=== PATIENT | male | born 1950 | race Caucasian/White ===

== ENCOUNTER 2021-07-03 16:58 | Observation (INO) ==
[2021-07-03 17:51] LABS: Basophils % 0.3 %; Eosinophils # 0.2 K/mcL (0.0-0.6); Eosinophils % 1.5 %; Hematocrit 42.3 % (37.5-50.1); Hemoglobin 13.8 g/dL (12.9-16.9); Immature Granulocytes % 0.5 % (0-4); Lymphocytes # 1.4 K/mcL (0.6-4.6); Lymphocytes % 11.5 %; Mean Corpuscular HGB Conc 32.6 g/dL (31.6-35.5); Mean Corpuscular Hemoglobin 31.1 pg (28.0-33.3); Mean Corpuscular Volume 95.3 fL (83.0-100.0); Mean Platelet Volume 10.6 fL (9.4-12.4); Monocytes % 8.3 %; Neutrophils # 9.1 K/mcL (1.6-8.9); Platelet Count 272 K/mcL (140-400); Red Blood Count 4.44 M/mcL (4.19-5.50); Segmented Neutrophils % 77.9 %; White Blood Count 11.7 K/mcL (4.3-11.1)
[2021-07-03] MEDS ORDERED: Acetaminophen 325 MG TABLET PO ONE (17:53)
[2021-07-03 17:58] LABS: INR 1.2; Prothrombin Time 13.3 Seconds (9.4-12.1)
[2021-07-03 18:01] LABS: Activated Partial Thrombo Time 47.9 Seconds (26.0-36.0)
[2021-07-03 18:09] LABS: BUN/Creatinine Ratio 16 (6-26); Blood Urea Nitrogen 22 mg/dL (8-23); Calcium 9.3 mg/dL (8.6-10.3); Carbon Dioxide 35 mEq/L (23-29); Chloride 97 mEq/L (98-107); Glucose 154 mg/dL (70-105); Osmolality,Calculated 294 (280-300); Potassium 3.4 mEq/L (3.5-5.1); Sodium 139 mEq/L (136-145); eGFR For African Americans > 60 (> 60); eGFR For Non-African Americans 51 (> 60)
[2021-07-03] MEDS ORDERED: Acetaminophen 325 MG TABLET PO PRN (20:31)
[2021-07-03] MEDS ORDERED: *HR* HYDROcodone/Acet 5/325 mg TABLET PO PRN (20:31)
[2021-07-03] MEDS ORDERED: Melatonin 3 MG TABLET PO PRN (20:31)
[2021-07-03] MEDS ORDERED: Ondansetron 4 MG/2 ML VIAL IVP PRN (20:31)
[2021-07-03] MEDS ORDERED: Naloxone 0.4 MG/ML INJ IVP PRN (20:31)
[2021-07-03] MEDS ORDERED: *HR* Heparin 5,000 UNIT/ML VIAL IVP PRN ×2 (20:36)
[2021-07-03] MEDS ORDERED: Saline Nasal Spray 44 ML BOTTLE NS PRN (21:55)
[2021-07-03] MEDS ORDERED: Fluticasone Propionate Nasal 50 MCG/SPRAY BOTTLE NS PRN (21:55)
[2021-07-03] MEDS ORDERED: QUEtiapine Fumarate 25 MG TABLET PO SCH (21:58)
[2021-07-03] MEDS: FLUOROURACIL TP SCH (22:21)
[2021-07-03] MEDS: Gabapentin 300 MG CAPSULE PO SCH (22:21)
[2021-07-03 22:30] LABS: Hematocrit 39.5 % (37.5-50.1); Hemoglobin 12.8 g/dL (12.9-16.9); Mean Corpuscular HGB Conc 32.4 g/dL (31.6-35.5); Mean Corpuscular Hemoglobin 30.8 pg (28.0-33.3); Mean Corpuscular Volume 95.2 fL (83.0-100.0); Mean Platelet Volume 10.6 fL (9.4-12.4); Platelet Count 257 K/mcL (140-400); Red Blood Count 4.15 M/mcL (4.19-5.50); Red Cell Distribution Width 14.1 % (11.5-14.5); White Blood Count 10.3 K/mcL (4.3-11.1)
[2021-07-03] MEDS: cilostazoL 100 MG TABLET PO SCH (22:31)
[2021-07-03 22:38] LABS: Heparin anti-factor XA UFH 0.56 IU/mL (0.30-0.70)
[2021-07-03 22:39] LABS: INR 1.2; Prothrombin Time 13.2 Seconds (9.4-12.1)
[2021-07-04] MEDS ORDERED: Heparin 25,000UNIT/250ML 1/2NS 25,000 UNIT/250 ML IV.SOLN IVC SCH (03:00)
[2021-07-04] MEDS ORDERED: *HR* Heparin 5,000 UNIT/ML VIAL IVP PRN ×2 (03:00)
[2021-07-04] MEDS ORDERED: *HR* Heparin 5,000 UNIT/ML VIAL IVP ONE (03:00)
[2021-07-04] MEDS: Gabapentin 300 MG CAPSULE PO SCH (08:05)
[2021-07-04] MEDS: cilostazoL 100 MG TABLET PO SCH (08:05)
[2021-07-04] MEDS: FLUOROURACIL TP SCH (08:08)
[2021-07-04] MEDS ORDERED: amLODIPine 5 MG TABLET PO SCH (09:00)
[2021-07-04] MEDS ORDERED: lisinopriL 20 MG TABLET PO SCH (09:00)
[2021-07-04] MEDS ORDERED: metOLazone 5 MG TABLET PO SCH (09:00)
[2021-07-04] MEDS ORDERED: predniSONE 20 MG TABLET PO SCH (09:00)
[2021-07-04 10:44] LABS: Basophils % 0.1 %; Eosinophils # 0.1 K/mcL (0.0-0.6); Eosinophils % 0.5 %; Hematocrit 38.2 % (37.5-50.1); Hemoglobin 12.5 g/dL (12.9-16.9); Immature Granulocytes % 0.4 % (0-4); Lymphocytes # 1.2 K/mcL (0.6-4.6); Lymphocytes % 8.7 %; Mean Corpuscular HGB Conc 32.7 g/dL (31.6-35.5); Mean Corpuscular Hemoglobin 30.8 pg (28.0-33.3); Mean Corpuscular Volume 94.1 fL (83.0-100.0); Mean Platelet Volume 10.7 fL (9.4-12.4); Monocytes # 0.9 K/mcL (0.0-1.3); Monocytes % 6.5 %; Neutrophils # 11.2 K/mcL (1.6-8.9); Platelet Count 260 K/mcL (140-400); Red Blood Count 4.06 M/mcL (4.19-5.50); Red Cell Distribution Width 14.2 % (11.5-14.5); Segmented Neutrophils % 83.8 %; White Blood Count 13.4 K/mcL (4.3-11.1)
[2021-07-04 10:59] LABS: Albumin 3.4 g/dL (3.5-5.7); Albumin/Globulin Ratio 1.3 (1.1-2.2); Calcium 8.5 mg/dL (8.6-10.3); Globulin 2.7 g/dL (2.4-3.5); Potassium 3.8 mEq/L (3.5-5.1); Total Protein 6.1 g/dL (6.4-8.9)
[2021-07-04 12:01] VITALS: BP 105/44; PULSE 75; TEMP 99.8; O2SAT 94
[2021-07-04] MEDS ORDERED: *HR* Rivaroxaban 15 MG TABLET PO SCH (13:30)
[2021-07-04] MEDS ORDERED: CloNIDine Patch 0.2 MG PATCH (WEEKLY) TD SCH (21:55)
== END 2021-07-04 17:36 | disposition home or self-care (01) ==
LOC: 2ANU 16:58 → EMEROOARM 16:58 → SUATTDRO 19:24 → 2ANU 20:04
PROVIDERS: ADMIT Family Medicine; ATTEND Internal Medicine